=== PATIENT | female | born 1970 | race Caucasian/White ===

== ENCOUNTER 2023-08-26 11:58 | Day surgery (SDC) | payer OTHER ==
[2023-08-26] MEDS ORDERED: Depo-Medrol 40 MG/ML IM ONE (11:59)
[2023-08-26] MEDS ORDERED: Decadron 4 MG INJ IV ONE (11:59)
[2023-08-26] MEDS ORDERED: XYLOCAINE-MPF 1% 5ML SDV IJ ONE (11:59)
[2023-08-26] MEDS ORDERED: BUPIVACAINE 0.5% VIAL IJ ONE (11:59)
[2023-08-26] MEDS ORDERED: Xylocaine-Mpf 2% 5 Ml Vial ONE (14:37)
[2023-08-26] MEDS ORDERED: DIPRIVAN 200 MG/20 ML IV ONE (14:37)
[2023-08-26] MEDS ORDERED: Lactated Ringers 1,000 ML IV ONE (15:03)
--- NOTE | 2023-08-26 16:54 | XRAY ---
Indication: Bilateral SI joint and piriformis injection. Intraoperative fluoroscopy provided for 43 seconds. 7 digital spot image submitted for interpretation demonstrates posterior needle tip projecting over the left and right SI joint. Additional posterior needle tip projects over the left/right piriformis with small amount of contrast injected for both needle tip placement. Correlate with intraoperative findings/report.
--- NOTE | 2023-08-26 17:02 | XRAY ---
43 seconds of fluoroscopy was used in surgery for a bilateral sacroiliac joint and piriformis injection.
== END 2023-08-26 15:10 | disposition home or self-care (01) ==
LOC: SDC-PAIN 11:58
PROVIDERS: ATTEND Psychiatry & Neurology Pain Medicine
DX: M46.1 Sacroiliitis, not elsewhere classified (principal); M79.18 Myalgia, other site
CPT/HCPCS: 01992; 20552; 27096; 72202; 77002; G0260; J1030; J1100; J2704; Q9966

== ENCOUNTER 2023-11-11 06:56 | Day surgery (SDC) | payer OTHER ==
[2023-11-11] MEDS ORDERED: Depo-Medrol 40 MG/ML IM ONE (06:57)
[2023-11-11] MEDS ORDERED: LIDOCAINE HCL 2% 100 MG/5 ML IJ ONE (06:57)
[2023-11-11] MEDS ORDERED: DIPRIVAN 200 MG/20 ML IV ONE (08:39)
[2023-11-11] MEDS ORDERED: Lactated Ringers 1,000 ML IV ONE (08:53)
--- NOTE | 2023-11-11 11:25 | XRAY ---
Indication: Bilateral L4-S1 MBB. Intraoperative fluoroscopy provided for 19 seconds. Single digital spot image submitted for interpretation demonstrates posterior needle tips projecting over the expected left and right L4-S1 nerve roots. Correlate with intraoperative findings/report.
--- NOTE | 2023-11-11 12:06 | XRAY ---
19 seconds of fluoroscopy was used in surgery for a bilateral L4-S1 MBB.
== END 2023-11-11 09:04 | disposition home or self-care (01) ==
LOC: SDC-PAIN 06:56
PROVIDERS: ATTEND Psychiatry & Neurology Pain Medicine
DX: M47.816 Spondylosis without myelopathy or radiculopathy, lumbar region (principal)
CPT/HCPCS: 64493; 64494; 72020; 77002; J1030; J2704

== ENCOUNTER 2023-11-25 13:08 | Day surgery (SDC) | payer OTHER ==
[2023-11-25] MEDS ORDERED: BUPIVACAINE 0.5% VIAL IJ ONE (13:09)
[2023-11-25] MEDS ORDERED: Depo-Medrol 40 MG/ML IM ONE (13:09)
[2023-11-25] MEDS ORDERED: DIPRIVAN 200 MG/20 ML IV ONE (14:42)
[2023-11-25] MEDS ORDERED: Lactated Ringers 1,000 ML IV ONE (15:12)
--- NOTE | 2023-11-25 16:47 | XRAY ---
Indication: Left SI joint injection. Intraoperative fluoroscopy provided for 12 seconds. 2 digital spot image submitted for interpretation demonstrates posterior needle tip projecting over the left SI joint. Correlate with intraoperative findings/report.
--- NOTE | 2023-11-25 16:59 | XRAY ---
12 seconds of fluoroscopy was used in surgery for a left sacroiliac joint injection.
== END 2023-11-25 15:10 | disposition home or self-care (01) ==
LOC: SDC-PAIN 13:08
PROVIDERS: ATTEND Psychiatry & Neurology Pain Medicine
DX: M46.1 Sacroiliitis, not elsewhere classified (principal)
CPT/HCPCS: 01992; 27096; 72170; 77002; G0260; J1030; J2704

== ENCOUNTER 2023-12-23 14:17 | Day surgery (SDC) | payer OTHER ==
[2023-12-23] MEDS ORDERED: Depo-Medrol 40 MG/ML IM ONE (14:18)
[2023-12-23] MEDS ORDERED: BUPIVACAINE 0.5% VIAL IJ ONE (14:18)
[2023-12-23] MEDS ORDERED: DIPRIVAN 200 MG/20 ML IV ONE (15:56)
[2023-12-23] MEDS ORDERED: Lactated Ringers 1,000 ML IV ONE (15:59)
--- NOTE | 2023-12-23 19:05 | XRAY ---
Indication: Bilateral L4-S1 MBB. Intraoperative fluoroscopy provided for 20 seconds. Single digital spot image submitted for interpretation demonstrates posterior needle tips projecting over expected left and right L4-S1 nerve roots. Correlate with intraoperative findings/report.
--- NOTE | 2023-12-24 08:49 | XRAY ---
20 seconds of fluoroscopy was used in surgery for a bilateral L4-S1 MBB.
== END 2023-12-23 16:21 | disposition home or self-care (01) ==
LOC: SDC-PAIN 14:17
PROVIDERS: ATTEND Psychiatry & Neurology Pain Medicine
DX: M47.816 Spondylosis without myelopathy or radiculopathy, lumbar region (principal)
CPT/HCPCS: 64493; 64494; 72020; 77002; J1010; J2704; J1030

== ENCOUNTER 2024-01-27 14:07 | Day surgery (SDC) | payer OTHER ==
[2024-01-27] MEDS ORDERED: XYLOCAINE-MPF 1% 5ML SDV IJ ONE (14:08)
[2024-01-27] MEDS ORDERED: BUPIVACAINE 0.5% VIAL IJ ONE (14:08)
[2024-01-27] MEDS ORDERED: Depo-Medrol 40 MG/ML IM ONE (14:08)
[2024-01-27] MEDS ORDERED: DIPRIVAN 200 MG/20 ML IV ONE (15:20)
[2024-01-27] MEDS ORDERED: Lactated Ringers 1,000 ML IV ONE (15:25)
--- NOTE | 2024-01-27 16:51 | XRAY ---
Indication: Right L4-S1 RFA. Intraoperative fluoroscopy provided for 25 seconds. 4 digital spot image submitted for interpretation demonstrates posterior needle tips projecting over the expected right L4-S1 nerve roots. Correlate with intraoperative findings/report.
--- NOTE | 2024-01-27 17:15 | XRAY ---
25 seconds of fluoroscopy was used in surgery for a right L4-S1 RFA.
== END 2024-01-27 15:55 | disposition home or self-care (01) ==
LOC: SDC-PAIN 14:07
PROVIDERS: ATTEND Psychiatry & Neurology Pain Medicine
DX: M47.816 Spondylosis without myelopathy or radiculopathy, lumbar region (principal)
CPT/HCPCS: 64635; 64636; 72100; 77002; J1010; J2704

== ENCOUNTER 2024-02-03 10:43 | Day surgery (SDC) | payer OTHER ==
[2024-02-03] MEDS ORDERED: Depo-Medrol 40 MG/ML IM ONE (10:44)
[2024-02-03] MEDS ORDERED: BUPIVACAINE 0.5% VIAL IJ ONE (10:44)
[2024-02-03] MEDS ORDERED: XYLOCAINE-MPF 1% 5ML SDV IJ ONE (10:44)
[2024-02-03] MEDS ORDERED: DIPRIVAN 200 MG/20 ML IV ONE (12:12)
--- NOTE | 2024-02-03 13:03 | XRAY ---
Indication: Left L4-S1 RFA. Intraoperative fluoroscopy provided for 16 seconds. 3 digital spot image submitted for interpretation demonstrates posterior needle tips projecting over the expected left L4-S1 nerve roots. Correlate with intraoperative findings/report.
--- NOTE | 2024-02-03 13:06 | XRAY ---
16 seconds of fluoroscopy was used in surgery for a left L4-S1 RFA.
[2024-02-03] MEDS ORDERED: Lactated Ringers 1,000 ML IV ONE (13:13)
== END 2024-02-03 12:55 | disposition home or self-care (01) ==
LOC: SDC-PAIN 10:43
PROVIDERS: ATTEND Psychiatry & Neurology Pain Medicine
DX: M47.816 Spondylosis without myelopathy or radiculopathy, lumbar region (principal)
CPT/HCPCS: 64635; 64636; 72100; 77002; J1010; J2704

== ENCOUNTER 2024-04-13 14:37 | Day surgery (SDC) | payer OTHER ==
[2024-04-13] MEDS ORDERED: BUPIVACAINE 0.5% VIAL IJ ONE (14:38)
[2024-04-13] MEDS ORDERED: Depo-Medrol 40 MG/ML IM ONE (14:38)
[2024-04-13] MEDS ORDERED: LIDOCAINE HCL 1% 50 MG/5 ML VL PF IJ ONE (14:38)
--- NOTE | 2024-04-13 18:14 | XRAY ---
Indication: Bilateral greater trochanter bursa injection. Intraoperative fluoroscopy provided for 24 seconds. 2 digital spot images submitted for interpretation demonstrates needle tips projecting lateral to the left/right greater trochanters. Small amount of contrast injected for needle tip placement. Correlate with intraoperative findings/report.
--- NOTE | 2024-04-14 13:12 | XRAY ---
24 seconds of fluoroscopy was used in surgery for a bilateral greater trochanteric bursa injection.
== END 2024-04-13 16:55 | disposition home or self-care (01) ==
LOC: SDC-PAIN 14:37
PROVIDERS: ATTEND Psychiatry & Neurology Pain Medicine
DX: M70.62 Trochanteric bursitis, left hip (principal); M70.61 Trochanteric bursitis, right hip
CPT/HCPCS: 20610; 73521; 77002; J2001; Q9966

== ENCOUNTER 2025-06-21 08:14 | Day surgery (SDC) | payer OTHER ==
[2025-06-21] MEDS ORDERED: BUPIVACAINE 0.5% VIAL IJ ONE (08:15)
[2025-06-21] MEDS ORDERED: methylPREDNISolone acetate IM ONE (08:15)
[2025-06-21] MEDS ORDERED: LIDOCAINE HCL 1% 50 MG/5 ML VL IJ ONE (08:15)
[2025-06-21] MEDS ORDERED: propofoL IV ONE (09:30)
[2025-06-21] MEDS ORDERED: Lactated Ringers 1,000 ML IV ONE (09:56)
--- NOTE | 2025-06-21 10:29 | XRAY ---
Indication: Left L4-S1 RFA. Intraoperative fluoroscopy provided for 30 seconds. 6 digital spot image submitted for interpretation demonstrates posterior needle tips projecting over expected left L4-S1 nerve roots. Correlate with intraoperative findings/report.
--- NOTE | 2025-06-21 13:07 | XRAY ---
30 seconds of fluoroscopy were used in surgery for a left L4-S1 RFA.
== END 2025-06-21 10:15 | disposition home or self-care (01) ==
LOC: SDC-PAIN 08:14
PROVIDERS: ATTEND Psychiatry & Neurology Pain Medicine
DX: M47.817 Spondylosis without myelopathy or radiculopathy, lumbosacral region (principal); E11.9 Type 2 diabetes mellitus without complications

== ENCOUNTER 2025-07-05 07:56 | Day surgery (SDC) | payer OTHER ==
[2025-07-05] MEDS ORDERED: BUPIVACAINE 0.5% VIAL IJ ONE (07:57)
[2025-07-05] MEDS ORDERED: LIDOCAINE HCL 1% 50 MG/5 ML VL IJ ONE (07:57)
[2025-07-05] MEDS ORDERED: methylPREDNISolone acetate IM ONE (07:57)
[2025-07-05] MEDS ORDERED: propofoL IV ONE (09:41)
[2025-07-05] MEDS ORDERED: Lactated Ringers 1,000 ML IV ONE (10:29)
--- NOTE | 2025-07-05 12:28 | XRAY ---
Indication: Right L4-S1 RFA. Intraoperative fluoroscopy provided for 12 seconds. 3 digital spot image submitted for interpretation demonstrates posterior needle tips projecting over expected right L4-S1 nerve roots. Correlate with intraoperative findings/report.
--- NOTE | 2025-07-05 12:48 | XRAY ---
12 seconds of fluoroscopy was used in surgery for a right L4-S1 RFA.
== END 2025-07-05 10:16 | disposition home or self-care (01) ==
LOC: SDC-PAIN 07:56
PROVIDERS: ATTEND Psychiatry & Neurology Pain Medicine
DX: M47.817 Spondylosis without myelopathy or radiculopathy, lumbosacral region (principal); E11.9 Type 2 diabetes mellitus without complications